=== PATIENT | male | born 1995 | race Two or more races ===

== ENCOUNTER 2018-11-28 01:31 | Emergency (ER) | payer SELFPAY ==
[2018-11-28] VITALS (9 sets, daily range): BP systolic 100–118; BP diastolic 46–84; PULSE 66–82; RESP 13–16; TEMP 36.8; O2SAT 95–100; BMI 27.2
[2018-11-28] MEDS: Ondansetron 4 MG/2 ML Vial IV (01:43)
--- NOTE | 2018-11-28 02:27 | ED.RN ---
lab called with critical lab results. ETOH level 385. Dr. Camacho made aware no new orders at this time
--- NOTE | 2018-11-28 02:52 | ED.DCSUM_ITS ---
- ER Visit Summary Date of Service: 11/28/18 Chief Complaint: Alcohol intoxication History of Present Illness: The patient is a 23 M patient was at a green party and had a great deal to drink. No trauma. He is not been vomiting. Physical Examination: Vitals: Stable. Afebrile. General: Well-nourished and well-developed. Head: Normocephalic atraumatic. Neck: Supple, no lymphadenopathy. No JVD. Nontender. Cardiovascular: Regular rate and rhythm. No murmurs. Respiratory: No respiratory distress. Clear to auscultation bilaterally. Abdominal: Soft, nontender, nondistended, normal bowel sounds. No guarding, rebound, or peritoneal signs. Back: Nontender. Extremities: Nontender, no edema. Skin: Normal color, no rash. Neurologic: Intoxicated. Arouses to voice. Moves all extremities well. Test Results: Alcohol is 385. Emergency Department Course and Treatment: Patient had an IV placed. He was given Zofran IV. He is resting comfortably. Treatment Plan: When the patient is clinically sober he will be discharged home. Instructed to follow-up his primary care physician as needed. Disposition: To home in improved and stable condition. Impression: 1. Alcohol intoxication. This note was generated with [employer] dictation software. It may contain incorrect words, spelling, and punctuation that were not noted in review of the chart prior to signing
--- NOTE | 2018-11-28 06:40 | ED.VISSUMM ---
ED Disposition - Plan for ED Patient: Instructions: ED Overdose Alcohol Referrals: Doctor,Your [STAFF PHYSICIAN] - As Needed
== END 2018-11-28 11:24 | disposition home or self-care (01) ==
PROVIDERS: Emergency Provider Emergency Medicine
DX: F10.129 Alcohol abuse with intoxication, unspecified (principal); Y90.8 Blood alcohol level of 240 mg/100 ml or more
CPT/HCPCS: 80320; 96374; 99285; J7030; A4216; G0480; J2405